=== PATIENT | male | born 1950 | race Caucasian/White ===

== ENCOUNTER 2020-10-12 21:08 | Emergency (ER) | payer OTHER ==
[~2020-10-12] VITALS: Ht 180.3 cm; Wt 108.0 kg
[2020-10-12 21:28] VITALS: Ht 180.3 cm; Wt 108.0 kg
[2020-10-12] MEDS ORDERED: GLUCOPHAGE500 MG PO (21:58)
[2020-10-12] MEDS ORDERED: GLIPIZIDE5 MG (21:59)
[2020-10-12] MEDS ORDERED: EFFEXOR25 MG (22:00)
[2020-10-12 22:28] LABS: BASOPHILS 1.2 % (0-2); EOSINOPHILS 2.9 % (0-7); HEMATOCRIT 46.6 % (42.0-54.0); HEMOGLOBIN 15.3 g/dL (13.5-17.5); MCH 30.1 pg (26.0-34.0); MCHC 32.8 g/dL (31.0-37.0); MCV 91.8 fL (80.0-100.0); MEAN PLATELET VOLUME 8.5 fL (7.4-10.4); MONOCYTES 10.3 % (2-11); NEUTROPHILS 45.6 % (40-80); PLATELET COUNT 188 10x3/uL (130-400); RBC 5.08 10x6/uL (4.20-6.10); RDW 14.2 % (11.5-14.5); WBC 6.2 10x3/uL (4.8-10.8)
[2020-10-12 22:57] LABS: ALBUMIN 3.6 g/dL (3.4-5.0); ANION GAP 12.3 mmol/L (8-16); BILIRUBIN - TOTAL 0.44 mg/dL (0.2-1.3); CREATININE - SERUM 1.2 mg/dL (0.6-1.3); MAGNESIUM - SERUM 2.3 mg/dL (1.8-2.4); POTASSIUM - SERUM 4.3 mmol/L (3.5-5.1); PROTEIN - SERUM 7.2 g/dL (6.4-8.2)
[2020-10-12 23:10] LABS: BILIRUBIN NEGATIVE (NEGATIVE); KETONE NEGATIVE mg/dL (< 1+); NITRITE NEGATIVE (NEGATIVE); UROBILINOGEN NORMAL mg/dL (< 2); WHITE CELLS - URINE <1 HPF (0-1)
[2020-10-13 01:21] VITALS: BP 132/78
== END 2020-10-13 01:21 | disposition home or self-care (01) ==
LOC: D.ER 21:08
PROVIDERS: Family Medicine
DX: E11.65 Type 2 diabetes mellitus with hyperglycemia (principal); Z79.84 Long term (current) use of oral hypoglycemic drugs